=== PATIENT | male | born 1975 | race Hispanic/Latino ===

== ENCOUNTER 2022-06-21 15:22 | Outpatient (CLI) | payer OTHER | END 2022-06-21 15:23 | disposition home or self-care (01) | LOC: DTY/OP 15:22 | PROVIDERS: ATTEND Surgery | DX: E66.01 Morbid (severe) obesity due to excess calories (principal) | CPT/HCPCS: 97802 ==

== ENCOUNTER 2022-08-18 10:30 | Inpatient (IN) | payer OTHER ==
[2022-08-22 14:24] VITALS: BMI 44.9
[2022-08-23] MEDS ORDERED: Heparin 5,000 UNITS/ML VIAL ONE (06:16)
[2022-08-23] MEDS ORDERED: Bupivacaine/Epinephrine 0.25% 30 ML VIAL ONE (06:43)
[2022-08-23] MEDS ORDERED: Famotidine/PF 20 mg/2ml Vial ONE (06:49)
[2022-08-23] MEDS ORDERED: Fentanyl 250 MCG/5 ML VIAL ONE (06:49)
[2022-08-23 07:09] LABS: SARS-CoV-2 NAA Rapid Test Not Detected (NotDetected)
[2022-08-23] MEDS ORDERED: Sodium Chloride 0.9% 100 ML ONE (07:26)
[2022-08-23] MEDS ORDERED: SUGAMMADEX SODIUM 200 MG/2 ML VIAL ONE (07:26)
[2022-08-23] MEDS ORDERED: CEFAZOLIN 2 GM VIAL ONE (07:26)
[2022-08-23] MEDS ORDERED: Midazolam HCl 2 mg/2 ml Vial ONE (07:26)
[2022-08-23] MEDS ORDERED: Dexamethasone 20 MG/5 ML VIAL ONE (07:39)
[2022-08-23] MEDS ORDERED: Ketorolac Tromethamine 30 MG/ML VIAL ONE (07:39)
[2022-08-23] MEDS ORDERED: Lidocaine 1% PF 5 ML VIAL ONE (07:39)
[2022-08-23] MEDS ORDERED: Rocuronium Bromide 10 MG/ML (10ML VIAL) ONE (07:39)
[2022-08-23] MEDS ORDERED: PROPOFOL 200 MG/20 ML VIAL ONE (07:39)
[2022-08-23] MEDS ORDERED: Ondansetron PF 4 MG/2 ML Vial ONE (07:39)
[2022-08-23] MEDS ORDERED: HYDROmorphone 2 MG/ML VIAL SLOW IVP PRN (08:12)
[2022-08-23] MEDS ORDERED: Promethazine HCl 25 MG/ML VIAL IM PRN ×2 (08:12→09:16)
[2022-08-23] MEDS ORDERED: Ondansetron HCl/PF 4 MG/2 ML Vial IVP PRN (08:12)
[2022-08-23] MEDS ORDERED: Meperidine HCl/PF 25 MG/ML VIAL SLOW IVP PRN (08:12)
[2022-08-23] MEDS ORDERED: Dextrose 5% in Water 1,000 ML IV PRN (09:16)
[2022-08-23] MEDS ORDERED: Dextrose 50% Abboject 50 ML SYRINGE SLOW IVP PRN (09:16)
[2022-08-23] MEDS ORDERED: Hydrocodone-Acetamin 15 ML UDCUP PO PRN (09:16)
[2022-08-23] MEDS ORDERED: Ipratropium/Albuterol 3 ML NEB NEB PRN (09:16)
[2022-08-23] MEDS ORDERED: hydrALAZINE 20 MG/ML VIAL SLOW IVP PRN (09:16)
[2022-08-23] MEDS ORDERED: Morphine 2 MG/ML VIAL SLOW IVP PRN (09:16)
[2022-08-23] MEDS ORDERED: Morphine 4 MG/ML VIAL SLOW IVP PRN (09:16)
[2022-08-23] MEDS ORDERED: diphenhydrAMINE 50 MG/ML VIAL IVP PRN (09:16)
[2022-08-23] MEDS ORDERED: Promethazine HCl 25 MG/ML VIAL ONE (09:35)
[2022-08-23] MEDS ORDERED: HYDROmorphone 0.5 MG/0.5 ML SYRINGE ONE ×3 (09:53→11:22)
[2022-08-23] MEDS ORDERED: D5 1/2 NS w/20 mEq KCL 1,000 ML ONE (12:19)
[2022-08-23] MEDS: Ketorolac Tromethamine 30 MG/ML VIAL IVP SCH ×3 (13:52→23:47)
[2022-08-23] MEDS: D5 1/2 NS w/20 mEq KCL 1,000 ML IV SCH ×2 (13:55→21:30)
[2022-08-24] MEDS: D5 1/2 NS w/20 mEq KCL 1,000 ML IV SCH ×3 (02:38→19:06)
[2022-08-24] MEDS: Ondansetron PF 4 MG/2 ML Vial IVP PRN (04:31)
[2022-08-24] MEDS: Ketorolac Tromethamine 30 MG/ML VIAL IVP SCH ×4 (05:35→23:16)
[2022-08-24 05:51] LABS: #Neutrophils 6.5 thou/uL (1.40-6.50); %Eosinophils 0.1 % (0.0-10.0); %Lymphocytes 21.1 % (21.0-51.0); %Monocytes 10.5 % (0.0-10.0); %Neutrophils 68.4 % (42.0-75.0); Hemoglobin 12.1 g/dL (14.0-18.0); Mean Corpuscular HGB CONC 33.4 g/dL (32.0-36.0); Mean Corpuscular Hemoglobin 28.9 pg (27.0-31.0); Mean Corpuscular Volume 86.4 fl (78.0-98.0); Mean Platelet Volume 8.3 fL (7.4-10.4); Platelet Count 165 10x3/uL (130-400); RBC Distribution Width 13.5 % (11.5-14.5); Red Blood Cell (RBC) Count 4.19 mill/uL (4.70-6.10); White Blood Cell (WBC) Count 9.5 10x3/uL (4.8-10.8)
[2022-08-24 06:12] LABS: Anion Gap 10 mmol/L (10-20); BUN (Urea Nitrogen) 9 mg/dL (8.9-20.6); Calc. Creatinine Clearance 221 mL/min (70-130); Calcium 8.4 mg/dL (7.8-10.44); Carbon Dioxide 22 mmol/L (22-29); Chloride 107 mmol/L (98-107); Estimated GFR 113; Glucose 113 mg/dL (70-105); Potassium 3.9 mmol/L (3.5-5.1); Sodium 135 mmol/L (136-145)
[2022-08-24] MEDS: Pantoprazole 40 MG VIAL IVP SCH (09:07)
[2022-08-25] MEDS: D5 1/2 NS w/20 mEq KCL 1,000 ML IV SCH ×3 (01:20→17:43)
[2022-08-25] MEDS: Ketorolac Tromethamine 30 MG/ML VIAL IVP SCH ×4 (05:20→23:33)
[2022-08-25] MEDS: Ondansetron PF 4 MG/2 ML Vial IVP PRN (05:21)
[2022-08-25] MEDS: Pantoprazole 40 MG VIAL IVP SCH (08:35)
[2022-08-25] MEDS ORDERED: Sodium Chloride 0.9% 1,000 ML IV SCH (10:00)
[2022-08-25] MEDS: Sodium Chloride 0.9% 1,000 ML IV SCH ×2 (11:09→17:44)
[2022-08-26] MEDS: D5 1/2 NS w/20 mEq KCL 1,000 ML IV SCH ×2 (01:56→08:41)
[2022-08-26] MEDS: Ketorolac Tromethamine 30 MG/ML VIAL IVP SCH ×2 (05:47→11:11)
[2022-08-26] MEDS: Sodium Chloride 0.9% 1,000 ML IV SCH ×2 (05:48→11:11)
[2022-08-26] MEDS: Pantoprazole 40 MG VIAL IVP SCH (08:30)
[2022-08-26 12:55] VITALS: BP 123/55; TEMP 97.8
== END 2022-08-26 12:30 | disposition home or self-care (01) | DRG 621 ==
LOC: EDSTATUS 10:30 → SURG A 08-23 05:50
PROVIDERS: ADMIT Surgery; ATTEND Surgery
PROC: 0DB64Z3 Excision of Stomach, Percutaneous Endoscopic Approach, Vertical (ICD-10-PCS; principal; 2022-08-23)
PROC: 8E0W4CZ Robotic Assisted Procedure of Trunk Region, Percutaneous Endoscopic Approach (ICD-10-PCS; 2022-08-23)
DX: E66.01 Morbid (severe) obesity due to excess calories (principal); Z20.822 Contact with and (suspected) exposure to COVID-19; Z68.41 Body mass index [BMI] 40.0-44.9, adult; Z79.899 Other long term (current) drug therapy; M16.11 Unilateral primary osteoarthritis, right hip; Z88.6 Allergy status to analgesic agent; Z88.8 Allergy status to other drugs, medicaments and biological substances; R13.10 Dysphagia, unspecified
CPT/HCPCS: 36415; 80048; 85025; 88307; C1889; C9113; J1100; J1170; J1644; J1650; J1885; J2250; J2405; J2550; J2704; J3010; J3480; J3490; J7050; S0028; U0002